=== PATIENT | female | born 1945 | race Caucasian/White ===

== ENCOUNTER 2023-09-14 08:30 | Inpatient (IN) | payer MEDICARE, OTHER ==
--- NOTE | 2023-09-14 09:24 | ED ---
General Adult HPI - General Chief complaint: Shortness of Breath Stated complaint: TORSTEN-covid Time Seen by Provider: 09/14/23 08:32 Source: patient, EMS, RN notes reviewed Mode of arrival: EMS Limitations: altered mental status - History of Present Illness Initial comments: Patient is an 78-year-old female presenting to the emergency department from shelter with concern for difficulty breathing. Patient diagnosed with COVID-19 infection 6 days ago. Patient admits to feeling short of breath. Patient denies history of similar symptoms previously. Patient denies pain. Patient feels fatigued. - Related Data Home Medications Medication Instructions Recorded Confirmed Acetaminophen [Tylenol] 650 mg PO Q4H PRN 09/14/23 09/14/23 Albuterol Nebulized [Ventolin 2.5 mg INHALATION RT-Q6H PRN 09/14/23 09/14/23 Nebulized] Albuterol Sulfate [Proair 2 puff INHALATION RT-Q4H PRN 09/14/23 09/14/23 Digihaler] Amoxicillin 500 mg PO TID@0700,1300,1900 09/14/23 09/14/23 Apixaban [Eliquis] 5 mg PO BID@0700,1600 09/14/23 09/14/23 Aspirin EC [Ecotrin Low Dose] 81 mg PO DAILY@0609/14/23 09/14/23 Benzonatate [Tessalon Perle] 200 mg PO TID@0700,1300,1900 09/14/23 09/14/23 Budesonide [Pulmicort] 0.5 mg INHALATION RT-BID@0700,1700 09/14/23 09/14/23 Cetirizine HCl [Zyrtec] 10 mg PO DAILY@0700 09/14/23 09/14/23 Cholecalciferol [Vitamin D3 (25 50 mcg PO DAILY@1600 09/14/23 09/14/23 Mcg = 1000 Iu)] Cough Drops Mouth/Throat Lozenge 1 lozenge PO Q8H PRN 09/14/23 09/14/23 5.4mg (Menthol) Doxycycline Hyclate 100 mg PO BID@0700,1600 09/14/23 09/14/23 Fenofibrate [Lofibra] 160 mg PO DAILY@0700 09/14/23 09/14/23 Levothyroxine Sodium [Synthroid] 50 mcg PO DAILY@0500 09/14/23 09/14/23 Lidocaine/Menthol [Icy Hot 4%-1% 1 patch TOPICAL DAILY@0609/14/23 09/14/23 Patch] Magnesium Hydroxide [Milk of 2,400 mg PO Q72H PRN 09/14/23 09/14/23 Magnesia] Metoprolol Tartrate [Lopressor] 12.5 mg PO BID@0700,1600 09/14/23 09/14/23 Molnupiravir [Molnupiravir (Eua)] 800 mg PO BID@0700,1600 09/14/23 09/14/23 Multivitamins, Thera [Multivitamin 1 tab PO DAILY@0709/14/23 09/14/23 (formulary)] Na Phos,M-B/Na Phos,Di-Ba [Fleet 133 ml RECTAL DAILY PRN 09/14/23 09/14/23 Adult] Oxybutynin Chloride [oxyBUTYnin 15 mg PO HS@199909/14/23 09/14/23 chloride ER] Pantoprazole [Protonix] 40 mg PO DAILY@69909/14/23 09/14/23 Potassium Chloride ER [K-Dur 10] 20 meq PO DAILY@0709/14/23 09/14/23 Sucralfate [Carafate] 1 gm PO QID@07,13,19,23 09/14/23 09/14/23 Umeclidinium [place] [Incruse 1 puff INHALATION RT-DAILY 09/14/23 09/14/23 Ellipta] bisacodyL [Dulcolax] 10 mg RECTAL DAILY PRN 09/14/23 09/14/23 predniSONE 5 mg PO DIRECTED 09/14/23 09/14/23 predniSONE [Deltasone] 40 mg PO DAILY@0709/14/23 09/14/23 Allergies Allergy/AdvReac Type Severity Reaction Status Date / Time cantaloupe Allergy Unknown Verified 09/14/23 10:14 ciprofloxacin [From Cipro] Allergy Unknown Verified 09/14/23 10:14 Iodinated Contrast Media Allergy Unknown Verified 09/14/23 10:14 mushroom Allergy Unknown Verified 09/14/23 10:14 naproxen Allergy Unknown Verified 09/14/23 10:14 NSAIDS (Non-Steroidal Allergy Unknown Verified 09/14/23 10:14 Anti-Inflamma Review of Systems ROS Statement: Those systems with pertinent positive or pertinent negative responses have been documented in the HPI. ROS Other: All systems not noted in ROS Statement are negative. Constitutional: Denies: fever Eyes: Denies: as per HPI ENT: Denies: ear pain Respiratory: Reports: as per HPI, cough, dyspnea Endocrine: Reports: fatigue Past Medical History Past Medical History: Atrial Fibrillation, COPD, Fibromyalgia, GERD/Reflux, GI Bleed, Hypertension, Renal Disease, Rheumatoid Arthritis (RA) Additional Past Medical History / Comment(s): UTI, Lymphedema, anemia, Covid19 Past Surgical History: Unable to Obtain General Exam Limitations: altered mental status General appearance: alert Head exam: Present: normocephalic Eye exam: Present: normal appearance Neck exam: Present: normal inspection. Absent: meningismus Respiratory exam: Present: rhonchi Cardiovascular Exam: Present: tachycardia GI/Abdominal exam: Present: soft. Absent: tenderness Extremities exam: Present: normal inspection Neurological exam: Present: alert, oriented X3. Absent: motor sensory deficit Psychiatric exam: Present: flat affect Skin exam: Present: normal color Course Vital Signs 09/14/23 09/14/23 09/14/23 08:31 08:36 09:00 Temperature 99 F Pulse Rate 101 H 96 Respiratory 52 H 32 H Rate Blood Pressure 108/74 108/74 O2 Sat by Pulse 93 L 93 L 95 Oximetry 09/14/23 09/14/23 09/14/23 09:30 10:00 10:30 Temperature Pulse Rate 94 99 99 Respiratory 35 H 34 H 35 H Rate Blood Pressure 124/60 125/55 127/61 O2 Sat by Pulse 94 L 94 L Oximetry 09/14/23 09/14/23 09/14/23 11:00 11:30 12:30 Temperature 97.7 F Pulse Rate 100 93 Respiratory 35 H 19 31 H Rate Blood Pressure 142/68 140/65 123/63 O2 Sat by Pulse 85 L 93 L Oximetry 09/14/23 09/14/23 09/14/23 12:45 13:00 13:52 Temperature 97.8 F 97.7 F Pulse Rate 96 91 86 Respiratory 35 H 32 H 34 H Rate Blood Pressure 123/95 132/65 133/72 O2 Sat by Pulse 93 L 96 96 Oximetry EKG Findings - EKG Results: EKG: interpreted by ERMD (Left axis. Artifact is present. Q wave V1. Nonspecific T waves), sinus rhythm Medical Decision Making - Medical Decision Making There is concern for sepsis diagnosed at 11:50 AM. Blood culture, lactic acid, and IV antibiotics have all been started. Fluids at 130. Was pt. sent in by a medical professional or institution (, PA, ANALYTICAL STRATEGIST, urgent care, hospital, or shelter...) When possible be specific @ -Nursing facility Did you speak to anyone other than the patient for history (EMS, parent, family, police, friend...)? What history was obtained from this source @ -No Did you review nursing and triage notes (agree or disagree)? Why? @ -I reviewed and agree with nursing and triage notes Were old charts reviewed (outside hosp., previous admission, EMS record, old EKG , old radiological studies, urgent care reports/EKG's, shelter records)? Report findings @ -No old charts were reviewed Differential Diagnosis (chest pain, altered mental status, abdominal pain women, abdominal pain men, vaginal bleeding, weakness, fever, dyspnea, syncope, headache, dizziness, GI bleed, back pain, seizure, CVA, palpatations, mental health, musculoskeletal)? @ -MDM differential distal differential Dyspnea: Coronary syndrome, arrhythmia, tamponade, asthma, COPD, pulmonary embolism, pneumonia, pneumothorax, pulmonary effusion, anaphylaxis, diabetic ketoacidosis, flailed chest, pulmonary contusion, diaphragmatic rupture, anemia, neuromuscular, this is not meant to be an all-inclusive list. EKG interpreted by me (3pts min.). @ -As above X-rays interpreted by me (1pt min.). @ -Chest x-ray shows right lower lobe CT interpreted by me (1pt min.). @ -None done U/S interpreted by me (1pt. min.). @ -None done What testing was considered but not performed or refused? (CT, X-rays, U/S, labs)? Why? @ -None What meds were considered but not given or refused? Why? @ -None Did you discuss the management of the patient with other professionals (professionals i.e. , IAN, ANALYTICAL STRATEGIST, lab, RT, psych nurse, outreach and education social worker, sifter and miller, teacher, botanical technical officer, general manager food)? Give summary @ -Case discussed with Dr. Barreto who will admit. Case also discussed with Dr. Guerrero who will consult. Case was again discussed with Dr. Barreto regarding de-escalation of care Was smoking cessation discussed for >3mins.? @ -No Was critical care preformed (if so, how long)? @ -No Were there social determinants of health that impacted care today? How? (Homelessness, low income, unemployed, alcoholism, drug addiction, transportation, low edu. Level, literacy, decrease access to med. care, alf, rehab)? @ -No Was there de-escalation of care discussed even if they declined (Discuss DNR or withdrawal of care, Hospice)? DNR status @ -Patient does not want further care. Patient does not want surgery nor surgical procedures even if life-threatening. Patient no longer wants blood. Patient no longer wants medical treatment. I did discuss this with the patient 3 times myself and she is alert and oriented and does demonstrate understanding. Patient is made aware that she may soon including even today. Nursing staff also discussed this with patient and came in with a similar understanding. Nursing staff also spoke with family who states that patient is able to make h er own decisions and does agree with her decision. What co-morbidities impacted this encounter? (DM, HTN, Smoking, COPD, CAD, Cancer, CVA, ARF, Chemo, Hep., AIDS, mental health diagnosis, sleep apnea, morbid obesity)? @ -None Was patient admitted / discharged? Hospital course, mention meds given and route, prescriptions, significant lab abnormalities, going to OR and other pertinent info. @ -Patient presents with multiple medical problems and serious to critical condition. Patient is refusing further care and only wants comfort care. Will be admitted for comfort Undiagnosed new problem with uncertain prognosis? @ -No Drug Therapy requiring intensive monitoring for toxicity (Heparin, Nitro, Insulin, Cardizem)? @ -No Were any procedures done? @ -No Diagnosis/symptom? @ -Retroperitoneal hemorrhage. Anemia. COVID-19. Sepsis. UTI. Acute kidney injury Acute, or Chronic, or Acute on Chronic? @ -Acute, acute, acute, acute, acute, acute Uncomplicated (without systemic symptoms) or Complicated (systemic symptoms)? @ -Default Side effects of treatment? @ -No Exacerbation, Progression, or Severe Exacerbation? @ -No Poses a threat to life or bodily function? How? (Chest pain, [place], [place], pneumonia, PE, COPD, DKA, ARF, appy, cholecystitis, CVA, Diverticulitis, Homicidal, Suicidal, threat to staff... and all critical care pts) @ -Threat to life with patient likely not to do well during this hospitalization - Lab Data Result diagrams: 09/14/23 09:33 09/14/23 09:33 Lab Results 09/14/23 09/14/23 09/14/23 Range/Units 09:33 09: 09:33 WBC 17.7 H (3.8-10.6) k/uL RBC 1.55 L (3.80-5.40) m/uL Hgb 4.5 L* (11.4-16.0) gm/dL Hct 14.9 L* (34.0-46.0) % MCV 96.2 (80.0-100.0) fL MCH 29.2 (25.0-35.0) pg MCHC 30.4 L (31.0-37.0) g/dL RDW 15.9 H (11.5-15.5) % Plt Count 304 (150-450) k/uL MPV 7.8 Neutrophils % (Manual) 89 % Band Neuts % (Manual) 1 % Lymphocytes % (Manual) 8 % Monocytes % (Manual) 4 % Neutrophils # (Manual) 15.90 H (1.3-7.7) k/uL Lymphocytes # (Manual) 1.42 (1.0-4.8) k/uL Monocytes # (Manual) 0.71 (0-1.0) k/uL Nucleated RBCs 1 H (0-0) /100 WBC Manual Slide Review Performed Polychromasia Present Hypochromasia Marked Poikilocytosis Slight Sodium 135 L (137-145) mmol/L Potassium 5.8 H (3.5-5.1) mmol/L Chloride 108 H (98-107) mmol/L Carbon Dioxide 19 L (22-30) mmol/L Anion Gap 8 mmol/L BUN 64 H (7-17) mg/dL Creatinine 2.86 H (0.52-1.04) mg/dL Est GFR (CKD-EPI)AfAm 17 (>60 ml/min/1.73 sqM) Est GFR (CKD-EPI)NonAf 15 (>60 ml/min/1.73 sqM) Glucose 98 (74-99) mg/dL Plasma Lactic Acid Og (0.7-2.0) mmol/L Calcium 8.9 (8.4-10.2) mg/dL Total Bilirubin 1.5 H (0.2-1.3) mg/dL AST 40 H (14-36) U/L ALT 19 (4-34) U/L Alkaline Phosphatase 78 (38-126) U/L Total Protein 5.8 L (6.3-8.2) g/dL Albumin 2.9 L (3.5-5.0) g/dL Urine Color Yellow Urine Appearance Turbid H (Clear) Urine pH 5.5 (5.0-8.0) Ur Specific [place] 1.018 (1.001-1.035) Urine Protein 1+ H (Negative) Urine Glucose (UA) Negative (Negative) Urine Ketones Negative (Negative) Urine Blood Moderate H (Negative) Urine Nitrite Negative (Negative) Urine Bilirubin Negative (Negative) Urine Urobilinogen <2.0 (<2.0) mg/dL Ur Leukocyte Esterase Large H (Negative) Urine RBC 20 H (0-5) /hpf Urine WBC >182 H (0-5) /hpf Urine WBC Clumps Many H (None) /hpf Ur Squamous Epith Cells 2 (0-4) /hpf Ur Yeast w Hyphae Few (None) /hpf Urine Yeast (Budding) Many H (None) /hpf Stool Occult Blood (Negative) Influenza Type A (PCR) (Not Detectd) Influenza Type B (PCR) (Not Detectd) RSV (PCR) (Not Detectd) SARS-CoV-2 (PCR) (Not Detectd) Blood Type Blood Type Confirm Blood Type Recheck Bld Type Recheck Status Antibody Screen Crossmatch Spec Expiration Date 09/14/23 09/14/23 09/14/23 Range/Units 09:33 09:33 10:00 WBC (3.8-10.6) k/uL RBC (3.80-5.40) m/uL Hgb (11.4-16.0) gm/dL Hct (34.0-46.0) % MCV (80.0-100.0) fL MCH (25.0-35.0) pg MCHC (31.0-37.0) g/dL RDW (11.5-15.5) % Plt Count (150-450) k/uL MPV Neutrophils % (Manual) % Band Neuts % (Manual) % Lymphocytes % (Manual) % Monocytes % (Manual) % Neutrophils # (Manual) (1.3-7.7) k/uL Lymphocytes # (Manual) (1.0-4.8) k/uL Monocytes # (Manual) (0-1.0) k/uL Nucleated RBCs (0-0) /100 WBC Manual Slide Review Polychromasia Hypochromasia Poikilocytosis Sodium (137-145) mmol/L Potassium (3.5-5.1) mmol/L Chloride (98-107) mmol/L Carbon Dioxide (22-30) mmol/L Anion Gap mmol/L BUN (7-17) mg/dL Creatinine (0.52-1.04) mg/dL Est GFR (CKD-EPI)AfAm (>60 ml/min/1.73 sqM) Est GFR (CKD-EPI)NonAf (>60 ml/min/1.73 sqM) Glucose (74-99) mg/dL Plasma Lactic Acid Og 1.0 (0.7-2.0) mmol/L Calcium (8.4-10.2) mg/dL Total Bilirubin (0.2-1.3) mg/dL AST (14-36) U/L ALT (4-34) U/L Alkaline Phosphatase (38-126) U/L Total Protein (6.3-8.2) g/dL Albumin (3.5-5.0) g/dL Urine Color Urine Appearance (Clear) Urine pH (5.0-8.0) Ur Specific [place] (1.001-1.035) Urine Protein (Negative) Urine Glucose (UA) (Negative) Urine Ketones (Negative) Urine Blood (Negative) Urine Nitrite (Negative) Urine Bilirubin (Negative) Urine Urobilinogen (<2.0) mg/dL Ur Leukocyte Esterase (Negative) Urine RBC (0-5) /hpf Urine WBC (0-5) /hpf Urine WBC Clumps (None) /hpf Ur Squamous Epith Cells (0-4) /hpf Ur Yeast w Hyphae (None) /hpf Urine Yeast (Budding) (None) /hpf Stool Occult Blood Positive H (Negative) Influenza Type A (PCR) Not Detected (Not Detectd) Influenza Type B (PCR) Not Detected (Not Detectd) RSV (PCR) Not Detected (Not Detectd) SARS-CoV-2 (PCR) Detected A (Not Detectd) Blood Type Blood Type Confirm Blood Type Recheck Bld Type Recheck Status Antibody Screen Crossmatch Spec Expiration Date 09/14/23 09/14/23 Range/Units 10:40 10:40 WBC (3.8-10.6) k/uL RBC (3.80-5.40) m/uL Hgb (11.4-16.0) gm/dL Hct (34.0-46.0) % MCV (80.0-100.0) fL MCH (25.0-35.0) pg MCHC (31.0-37.0) g/dL RDW (11.5-15.5) % Plt Count (150-450) k/uL MPV Neutrophils % (Manual) % Band Neuts % (Manual) % Lymphocytes % (Manual) % Monocytes % (Manual) % Neutrophils # (Manual) (1.3-7.7) k/uL Lymphocytes # (Manual) (1.0-4.8) k/uL Monocytes # (Manual) (0-1.0) k/uL Nucleated RBCs (0-0) /100 WBC Manual Slide Review Polychromasia Hypochromasia Poikilocytosis Sodium (137-145) mmol/L Potassium (3.5-5.1) mmol/L Chloride (98-107) mmol/L Carbon Dioxide (22-30) mmol/L Anion Gap mmol/L BUN (7-17) mg/dL Creatinine (0.52-1.04) mg/dL Est GFR (CKD-EPI)AfAm (>60 ml/min/1.73 sqM) Est GFR (CKD-EPI)NonAf (>60 ml/min/1.73 sqM) Glucose (74-99) mg/dL Plasma Lactic Acid Og (0.7-2.0) mmol/L Calcium (8.4-10.2) mg/dL Total Bilirubin (0.2-1.3) mg/dL AST (14-36) U/L ALT (4-34) U/L Alkaline Phosphatase (38-126) U/L Total Protein (6.3-8.2) g/dL Albumin (3.5-5.0) g/dL Urine Color Urine Appearance (Clear) Urine pH (5.0-8.0) Ur Specific [place] (1.001-1.035) Urine Protein (Negative) Urine Glucose (UA) (Negative) Urine Ketones (Negative) Urine Blood (Negative) Urine Nitrite (Negative) Urine Bilirubin (Negative) Urine Urobilinogen (<2.0) mg/dL Ur Leukocyte Esterase (Negative) Urine RBC (0-5) /hpf Urine WBC (0-5) /hpf Urine WBC Clumps (None) /hpf Ur Squamous Epith Cells (0-4) /hpf Ur Yeast w Hyphae (None) /hpf Urine Yeast (Budding) (None) /hpf Stool Occult Blood (Negative) Influenza Type A (PCR) (Not Detectd) Influenza Type B (PCR) (Not Detectd) RSV (PCR) (Not Detectd) SARS-CoV-2 (PCR) (Not Detectd) Blood Type O Positive Blood Type Confirm O Positive Blood Type Recheck No Previous Record Bld Type Recheck Status CABO Indicated Antibody Screen NEGATIVE Crossmatch See Detail Spec Expiration Date 09/17/20232339 Disposition Clinical Impression: COVID-19, Urinary tract infection, Sepsis, Retroperitoneal hemorrhage Disposition: ADMITTED IP TO THIS HOSP Condition: Critical Is patient prescribed a controlled substance at d/c from ED?: No Referrals: Milana Orr DO [Primary Care Provider] - 1-2 days Time of Disposition: 14:16
[2023-09-14] MEDS: ACETAMINOPHEN IV (For NPO) 1,000 MG in EMPTY BAG 1 BAG IVPB STA (09:46)
[2023-09-14 09:56] LABS: Hypochromasia Marked; MCH 29.2 pg (25.0-35.0); MCHC 30.4 g/dL (31.0-37.0); MCV 96.2 fL (80.0-100.0); Mean Platelet Volume 7.8; Platelet Count 304 k/uL (150-450); Poikilocytosis Slight; RBC 1.55 m/uL (3.80-5.40); RDW 15.9 % (11.5-15.5)
--- NOTE | 2023-09-14 09:59 | XR ---
EXAMINATION TYPE: XR chest 1V portable DATE OF EXAM: 09/14/2023 HISTORY: Shortness of breath. COMPARISON: None. TECHNIQUE: Single view of the chest is submitted. FINDINGS: Demonstrated are scattered senescent parenchymal change. Patchy infiltrate right medial lung base. Correlate for pneumonia. The heart is stable. Hilar and mediastinal structures are within normal limits. Degenerative changes are seen of the dorsal spine. IMPRESSION: 1. Patchy infiltrate right medial lung base. Correlate for pneumonia.
[2023-09-14 10:01] LABS: HGB 4.5 gm/dL (11.4-16.0)
[2023-09-14 10:02] LABS: HCT 14.9 % (34.0-46.0)
[2023-09-14 10:05] LABS: ALT 19 U/L (4-34); AST 40 U/L (14-36); African American GFR (CKD) 17 (>60 ml/min/1.73 sqM); Albumin 2.9 g/dL (3.5-5.0); Alkaline Phosphatase 78 U/L (38-126); Anion Gap 8 mmol/L; Blood Urea Nitrogen 64 mg/dL (7-17); Calcium 8.9 mg/dL (8.4-10.2); Carbon Dioxide 19 mmol/L (22-30); Chloride 108 mmol/L (98-107); Glucose 98 mg/dL (74-99); Non-African American GFR(CKD) 15 (>60 ml/min/1.73 sqM); Potassium 5.8 mmol/L (3.5-5.1); Sodium 135 mmol/L (137-145); Total Bilirubin 1.5 mg/dL (0.2-1.3); Total Protein 5.8 g/dL (6.3-8.2)
[2023-09-14 10:18] LABS: Band Neutrophils % 1 %; Lymphocytes # (M) 1.42 k/uL (1.0-4.8); Monocytes # (M) 0.71 k/uL (0-1.0); Neutrophils % (M) 89 %; Nucleated Red Blood Cells 1 /100 WBC (0-0); Total Cells Counted 200; WBC 17.7 k/uL (3.8-10.6)
[2023-09-14 10:19] LABS: Polychromasia Present
[2023-09-14] MEDS: SODIUM CHLORIDE 0.9% 1,000 ML IV SCH (10:24)
[2023-09-14 10:34] LABS: Appearance,Urine Turbid (Clear); Bilirubin,Urine Negative (Negative); Blood,Urine Moderate (Negative); Budding Yeast,Urine Many /hpf; Color,Urine Yellow; Glucose,Urine (UA) Negative (Negative); Hyphae Yeast, Urine Few /hpf; Ketones,Urine Negative (Negative); Leukocyte Esterase,Urine Large (Negative); Nitrite,Urine Negative (Negative); PH, Urine 5.5 (5.0-8.0); Protein,Urine 1+ (Negative); RBC,Urine 20 /hpf (0-5); Specific Gravity,Urine 1.018 (1.001-1.035); Squamous Epithelial Cell,Urine 2 /hpf (0-4); Urobilinogen,Urine <2.0 mg/dL (<2.0); WBC,Urine >182 /hpf (0-5)
--- NOTE | 2023-09-14 12:28 | CT ---
EXAMINATION TYPE: CT abdomen pelvis wo con DATE OF EXAM: 09/14/2023 HISTORY: COVID/UTI/LOW HEMOGLOBIN CT DLP: 995.6 mGycm. Automated Exposure Control for Dose Reduction was Utilized. TECHNIQUE: CT scan of the abdomen and pelvis is performed without oral or IV contrast. COMPARISON: NONE FINDINGS: Within the limitations of a non-contrast study, the following observations are made. LUNG BASES: Small right pleural effusion. And dependent opacity bilaterally favors atelectasis. Coron terry artery calcification is noted. LIVER/GB: Nonspecific 2.6 cm hypodense lesion in the hepatic dome image 10 favors benign thin-walled cyst. Internal gallstones in gallbladder. PANCREAS: No significant abnormality is seen. SPLEEN: No significant abnormality is seen. ADRENALS: No significant abnormality is seen. KIDNEYS: Cortical thinning in both kidneys with simple appearing thin-walled cysts bilaterally. There is hyperdense fluid or acute blood surrounding the right kidney greatest along the lateral and infer ior aspect. This measures at least 8.4 x 5.7 cm axial image 38. No hydronephrosis seen bilaterally. F oley catheter decompresses bladder. BOWEL: No significant abnormality is seen. GENITAL ORGANS: Uterus is surgically absent. LYMPH NODES: No greater than 1cm abdominal or pelvic lymph nodes are appreciated. OSSEOUS STRUCTURES: Multilevel vacuum disc phenomenon and disc space narrowing in the thoracolumbar s pine. Multilevel spurring. Moderate to severe narrowing of both hip joints. Motion artifact near this level is noted. OTHER: Moderate calcified plaque of aorta extends into branch vessels.. IMPRESSION: At least fairly moderate size right retroperitoneal acute bleed as detailed above most pr ominent along the inferior margin of the right kidney. Consider direct catheter angiogram to further evaluate for source of active hemorrhage which then could be treated with endovascular procedure if f elt likely warranted.
[2023-09-14 13:12] VITALS: TEMP 97.7
[2023-09-14] MEDS ORDERED: ONDANSETRON 4 MG/2 ML VIAL IVP PRN (14:17)
[2023-09-14] MEDS ORDERED: ACETAMINOPHEN TAB 325 MG TAB PO PRN (14:17)
[2023-09-14] MEDS ORDERED: ALBUTEROL NEBULIZED 2.5 MG/3 ML INHALATION PRN ×2 (14:19→15:19)
[2023-09-14] MEDS: SODIUM CHLORIDE 0.9% 1,000 ML IV STA (14:57)
[2023-09-14] MEDS: LORazepam 2 MG/ML INJ IV PRN (19:10)
[2023-09-14] MEDS: MORPHINE SULFATE (100 MG/2 ML) 100 MG in SODIUM CHLORIDE 0.9% 100 ML IV SCH (20:13)
[2023-09-14] MEDS ORDERED: ALBUTEROL HFA INHALER INHALATION PRN (20:27)
--- NOTE | 2023-09-14 21:39 | P.HPIM ---
History of Present Illness H&P Date: 09/14/23 Chief Complaint: Shortness of breath Patient is a 78-year-old female with a known history of hypertension, COPD on home oxygen, fibromyalgia, rheumatoid arthritis, lymphedema, paroxysmal atrial fibrillation on anticoagulation with Eliquis and other multiple medical problems. Patient is also morbidly obese with a BMI 51.5. Patient was sent from [facility] due to worsening shortness of breath and hypoxia. Patient has been sick for the past 6 days and was diagnosed with CO VID-19 infection. She was also having low-grade fever. Pulse ox was 86% on 4 L oxygen via nasal cannula. Patient was recently treated for urinary tract infection, tract infection, diarrhea and C. difficile infection and also has history of bleeding ulcer. Unable to provide complete history from the patient. On admission chest x-ray showed patchy infiltrate right medial lung base correlate for pneumonia. EKG showed low QRS voltage in precordial leads. Sinus rhythm. Laboratory data showed WBC 17.7 hemoglobin 4.5 and platelets 304 RDW 15.9 Sodium 135 potassium 5.8, BUN 64 and creatinine 2.86 and calcium 8.9 total bili 1.5 AST 40 alk phos 78 albumin 2.2.9 and urinalysis showed turbid with 1+ protein moderate blood large leukocyte esterase with elevated RBCs and WBCs. FOBT positive COVID-[address] of the abdomen pelvis showed fairly moderate-sized right retroperitoneal acute bleed most prominent along the inferior margin of the right kidney. Consider direct catheter angiogram to further evaluate for source of acute hemorrhage which then could be treated with endovascular procedure. Review of Systems Complete review of systems could not be assessed except as per HPI. ROS unobtainable: due to mental status Past Medical History Past Medical History: Atrial Fibrillation, COPD, Fibromyalgia, GERD/Reflux, GI Bleed, Hypertension, Renal Disease, Rheumatoid Arthritis (RA) Additional Past Medical History / Comment(s): UTI, Lymphedema, anemia, Covid19 Past Surgical History: Unable to Obtain Medications and Allergies Home Medications Medication Instructions Recorded Confirmed Type Acetaminophen [Tylenol] 650 mg PO Q4H PRN 09/14/23 09/14/23 History Albuterol Nebulized [Ventolin 2.5 mg INHALATION RT-Q6H PRN 09/14/23 09/14/23 History Nebulized] Albuterol Sulfate [Proair 2 puff INHALATION RT-Q4H PRN 09/14/23 09/14/23 History Digihaler] Amoxicillin 500 mg PO TID@0700,1300,1900 09/14/23 09/14/23 History Apixaban [Eliquis] 5 mg PO BID@0700,159909/14/23 09/14/23 History Aspirin EC [Ecotrin Low Dose] 81 mg PO DAILY@59909/14/23 09/14/23 History Benzonatate [Tessalon Perle] 200 mg PO TID@0700,1300,19009/14/23 09/14/23 History Budesonide [Pulmicort] 0.5 mg INHALATION RT-BID@0700,1700 09/14/23 09/14/23 History Cetirizine HCl [Zyrtec] 10 mg PO DAILY@69909/14/23 09/14/23 History Cholecalciferol [Vitamin D3 (25 50 mcg PO DAILY@159909/14/23 09/14/23 History Mcg = 1000 Iu)] Cough Drops Mouth/Throat Lozenge 1 lozenge PO Q8H PRN 09/14/23 09/14/23 History 5.4mg (Menthol) Doxycycline Hyclate 100 mg PO BID@0700,159909/14/23 09/14/23 History Fenofibrate [Lofibra] 160 mg PO DAILY@69909/14/23 09/14/23 History Levothyroxine Sodium [Synthroid] 50 mcg PO DAILY@05009/14/23 09/14/23 History Lidocaine/Menthol [Icy Hot 4%-1% 1 patch TOPICAL DAILY@59909/14/23 09/14/23 History Patch] Magnesium Hydroxide [Milk of 2,400 mg PO Q72H PRN 09/14/23 09/14/23 History Magnesia] Metoprolol Tartrate [Lopressor] 12.5 mg PO BID@0700,159909/14/23 09/14/23 History Molnupiravir [Molnupiravir (Eua)] 800 mg PO BID@0700,1600 09/14/23 09/14/23 History Multivitamins, Thera [Multivitamin 1 tab PO DAILY@0709/14/23 09/14/23 History (formulary)] Na Phos,M-B/Na Phos,Di-Ba [Fleet 133 ml RECTAL DAILY PRN 09/14/23 09/14/23 History Adult] Oxybutynin Chloride [oxyBUTYnin 15 mg PO HS@199909/14/23 09/14/23 History chloride ER] Pantoprazole [Protonix] 40 mg PO DAILY@0709/14/23 09/14/23 History Potassium Chloride ER [K-Dur 10] 20 meq PO DAILY@0709/14/23 09/14/23 History Sucralfate [Carafate] 1 gm PO QID@07,13,,09/14/23 09/14/23 History Umeclidinium [place] [Incruse 1 puff INHALATION RT-DAILY 09/14/23 09/14/23 History Ellipta] bisacodyL [Dulcolax] 10 mg RECTAL DAILY PRN 09/14/23 09/14/23 History predniSONE 5 mg PO DIRECTED 09/14/23 09/14/23 History predniSONE [Deltasone] 40 mg PO DAILY@0709/14/23 09/14/23 History Allergies Allergy/AdvReac Type Severity Reaction Status Date / Time cantaloupe Allergy Unknown Verified 09/14/23 10:14 ciprofloxacin [From Cipro] Allergy Unknown Verified 09/14/23 10:14 Iodinated Contrast Media Allergy Unknown Verified 09/14/23 10:14 mushroom Allergy Unknown Verified 09/14/23 10:14 naproxen Allergy Unknown Verified 09/14/23 10:14 NSAIDS (Non-Steroidal Allergy Unknown Verified 09/14/23 10:14 Anti-Inflamma Physical Exam Vitals: Vital Signs Temp Pulse Resp BP Pulse Ox 09/14/23 13:52 86 34 H 133/72 96 09/14/23 13:00 97.7 F 91 32 H 132/65 96 09/14/23 12:45 97.8 F 96 35 H 123/95 93 L 09/14/23 12:30 97.7 F 93 31 H 123/63 93 L 09/14/23 11:30 19 140/65 09/14/23 11:00 100 35 H 142/68 85 L 09/14/23 10:30 99 35 H 127/61 94 L 09/14/23 10:00 99 34 H 125/55 94 L 09/14/23 09:30 94 35 H 124/60 09/14/23 09:00 96 32 H 108/74 95 09/14/23 08:36 93 L 09/14/23 08:31 99 F 101 H 52 H 108/74 93 L Intake and Output 09/14/23 09/14/23 09/14/23 06:59 14:59 22:59 Intake Total 0 Balance 0 Intake: Blood Product 0 Rc As-1 Unit 0 [id number] Other: Weight 136.078 kg PHYSICAL EXAMINATION: Patient is lying in the bed, no acute distress, awake alert and oriented but c onfused... HEENT: Normocephalic. Neck is supple. Pupils reactive. Nostrils clear. Oral cavity is moist. Neck reveals no JVD, carotid bruits, or thyromegaly. CHEST EXAMINATION: Trachea is central. Symmetrical expansion. Bibasilar diminished sounds. No wheezing or rhonchi.. CARDIAC: Normal S1, S2 with no gallops. No murmurs ABDOMEN: Soft. Bowel sounds normal. No organomegaly. No abdominal bruits. Extremities: Bilateral lower extremity lymphedema.. No clubbing or cyanosis Neurologically awake, alert, oriented x 1-2. Able to move all extremities.. No focal deficits noted Skin: No rash or skin lesions. Psychiatric: Coperative. Could not be assessed completely Musculoskeletal: No joint swelling or deformity. Results CBC & Chem 7: 09/14/23 09:33 09/14/23 09:33 Labs: Abnormal Lab Results - Last 24 Hours (Table) 09/14/23 09/14/23 09/14/23 Range/Units 09:33 09:33 09:33 WBC 17.7 H (3.8-10.6) k/uL RBC 1.55 L (3.80-5.40) m/uL Hgb 4.5 L* (11.4-16.0) gm/dL Hct 14.9 L* (34.0-46.0) % MCHC 30.4 L (31.0-37.0) g/dL RDW 15.9 H (11.5-15.5) % Neutrophils # (Manual) 15.90 H (1.3-7.7) k/uL Nucleated RBCs 1 H (0-0) /100 WBC Sodium 135 L (137-145) mmol/L Potassium 5.8 H (3.5-5.1) mmol/L Chloride 108 H (98-107) mmol/L Carbon Dioxide 19 L (22-30) mmol/L BUN 64 H (7-17) mg/dL Creatinine 2.86 H (0.52-1.04) mg/dL Total Bilirubin 1.5 H (0.2-1.3) mg/dL AST 40 H (14-36) U/L Total Protein 5.8 L (6.3-8.2) g/dL Albumin 2.9 L (3.5-5.0) g/dL Urine Appearance Turbid H (Clear) Urine Protein 1+ H (Negative) Urine Blood Moderate H (Negative) Ur Leukocyte Esterase Large H (Negative) Urine RBC 20 H (0-5) /hpf Urine WBC >182 H (0-5) /hpf Urine WBC Clumps Many H (None) /hpf Urine Yeast (Budding) Many H (None) /hpf Stool Occult Blood (Negative) SARS-CoV-2 (PCR) (Not Detectd) Crossmatch 09/14/23 09/14/23 09/14/23 Range/Units 09:33 10:00 10:40 WBC (3.8-10.6) k/uL RBC (3.80-5.40) m/uL Hgb (11.4-16.0) gm/dL Hct (34.0-46.0) % MCHC (31.0-37.0) g/dL RDW (11.5-15.5) % Neutrophils # (Manual) (1.3-7.7) k/uL Nucleated RBCs (0-0) /100 WBC Sodium (137-145) mmol/L Potassium (3.5-5.1) mmol/L Chloride (98-107) mmol/L Carbon Dioxide (22-30) mmol/L BUN (7-17) mg/dL Creatinine (0.52-1.04) mg/dL Total Bilirubin (0.2-1.3) mg/dL AST (14-36) U/L Total Protein (6.3-8.2) g/dL Albumin (3.5-5.0) g/dL Urine Appearance (Clear) Urine Protein (Negative) Urine Blood (Negative) Ur Leukocyte Esterase (Negative) Urine RBC (0-5) /hpf Urine WBC (0-5) /hpf Urine WBC Clumps (None) /hpf Urine Yeast (Budding) (None) /hpf Stool Occult Blood Positive H (Negative) SARS-CoV-2 (PCR) Detected A (Not Detectd) Crossmatch See Detail Thrombosis Risk Factor Assmnt - DVT/VTE Prophylaxis DVT/VTE Prophylaxis: Pharmacologic Prophylaxis ordered Assessment and Plan Assessment: Acute on chronic hypoxic respiratory failure due to COVID-19 infection Acute blood loss anemia due to GI bleed/retroperitoneal hemorrhage with h emoglobin 4.5 on admission. FOBT positive. Acute urinary tract infection Right medial base possible bacterial pneumonia. Hypovolemic hyponatremia Acute kidney injury likely vasomotor nephropathy with possible ATN with creatinine 2.86 on admission Hyperkalemia due to acute kidney injury History of bleeding ulcer COPD on home oxygen Paroxysmal atrial fibrillation on anticoagulation with Eliquis Fibromyalgia Hypertension Lymphedema DVT prophylaxis SCDs Plan: Patient will be continued on IV hydration with normal saline. Current oxygen supplementation. Patient was started on prednisone 40 mg p.o. daily. Follow-up renal function. Started on antibiotics ceftriaxone and follow-up urine culture report. CT of the abdomen pelvis showed retroperitoneal bleed. General surgery was consulted for evaluation but patient does not want any surgical procedure at this time. Patient has caregiver. Due to poor prognosis and patient does not wish to proceed any procedures, discussed with the family and caregiver who is agreeable with transfer to hospice care. Follow-up closely. Time with Patient: Greater than 30
[2023-09-14] MEDS: HALOPERIDOL LACTATE 5 MG/ML 1 ML VIAL IVP PRN (23:11)
[2023-09-15] MEDS: OXYBUTYNIN 15 MG TAB.ER.24 PO SCH (00:36)
[2023-09-15] MEDS ORDERED: LIDOCAINE 4% PATCH TOPICAL SCH (06:00)
[2023-09-15] MEDS ORDERED: predniSONE 20 MG TAB PO SCH (07:00)
[2023-09-15] MEDS ORDERED: PANTOPRAZOLE 40 MG TABLET PO SCH (07:00)
[2023-09-15 07:45] VITALS: BP 132/57; PULSE 96; RESP 22
--- NOTE | 2023-09-21 09:19 | CDI ---
Documentation Clarification Form Date: 09/21/2023 From: Nivia Franklin Phone: [phone] Admit Date: 09/14/2023 03:16:00 PM Patient Name: Deyanira Cardenas Visit Number: [id number] Discharge Date: 09/15/2023 10:00:00 AM ATTENTION: The Clinical Documentation Specialists (CDI) and [facility] Coding Staff appreciate your assistance in clarifying documentation. Please respond to the clarification below the line at the bottom and electronically sign. The CDI & [facility] Coding staff will review the response and follow-up if needed. Please note: Queries are made part of the Legal Health Record. If you have any questions, please contact the author of this message via ITS. Dr. Landon Barreto: Sepsis is documented in the ED note 09/13 but is not noted in subsequent documentation. Clarification is requested. History/Risk Factors: 78 year old female with a history of AFib, COPD, HTN, renal disease and GI bleed who presents with difficulty breathing- diagnosed with COVID-19 infection 6 days prior Clinical Indicators: 09/13 Triage VS: 108/74, 99.0, 101, 52, 93% 3 liters nasal cannula 09/13 ED note, Clinical Impression: "COVID-19, urinary tract infection, Sepsis, Retroperitoneal hemorrhage" 09/13 H&P, Assessment and Plan: Acute urinary tract infection, Right medial base possible bacterial pneumonia." 09/13 WBC: 17.7 Lactic Acid: 1.0 SARS-CoV-2(PCR): Detected 09/13 Urinalysis: Appearance: Turbid, Protein: 1+, Blood: Moderate, Leukocyte Esterase: Large, RBC: 20, WBC :>182, Yeast: Many 09/13 Chest X Ray, Impression: "1. Patchy infiltrate right medial lung base. Correlate for pneumonia." Treatment: Normal Saline IV 130cc/hour 09/13 Rocephin 2gram IV once 09/13 Please clarify if Sepsis is: [ x ] Sepsis, POA, confirmed, remains under treatment [ ] Sepsis confirmed, resolved [ ] Sepsis ruled out [ ] Other condition, please specify [ ] Unable to determine SIRS Criteria: 2 or more of the following may indicate SIRS Temperature < 96.8F (36C) or > 101.0F (38.3C) Heart Rate > 90 bpm Respiratory Rate > 20 breaths/min or PaCO2 < 32 mmHg White Blood Cell Count > 12,000 or < 4,000 cells/mm3 or > 10% bands MTDD
--- NOTE | 2023-09-21 09:27 | CDI ---
Documentation Clarification Form Date: 09/21/2023 From: Nivia Franklin Phone: [phone] Admit Date: 09/14/2023 03:16:00 PM Patient Name: Deyanira Cardenas Visit Number: [id number] Discharge Date: 09/15/2023 10:00:00 AM ATTENTION: The Clinical Documentation Specialists (CDI) and [facility] Coding Staff appreciate your assistance in clarifying documentation. Please respond to the clarification below the line at the bottom and electronically sign. The CDI & [facility] Coding staff will review the response and follow-up if needed. Please note: Queries are made part of the Legal Health Record. If you have any questions, please contact the author of this message via ITS. Dr. Landon Barreto: There is documentation of possible bacterial pneumonia in the H&P 09/13. Additional clarification is requested. History/Risk Factors: 78-year-old female with a history of AFib, COPD, HTN, renal disease and GI bleed who presents with difficulty breathing- diagnosed with COVID-19 infection 6 days prior Clinical Indicators: 09/13 Triage VS: 108/74, 99.0, 101, 52, 93% 3 liters nasal cannula 09/13 ED note, Clinical Impression: "COVID-19, urinary tract infection, Sepsis, Retroperitoneal hemorrhage" 09/13 H&P, Assessment and Plan: Acute urinary tract infection, Right medial base possible bacterial pneumonia." 09/13 WBC: 17.7 Lactic Acid: 1.0 SARS-CoV-2(PCR): Detected 09/13 Chest X Ray, Impression: "1. Patchy infiltrate right medial lung base. Correlate for pneumonia." Treatment: Normal Saline IV 130cc/hour 09/13 Rocephin 2gram IV once 09/13 Can you please clarify the diagnosis of bacterial pneumonia? [ x ] Bacterial pneumonia ruled in [ ] Bacterial pneumonia ruled out [ ] Other, please specify [ ] Unable to determine MTDD
== END 2023-09-15 10:00 | disposition hospice, inpatient (51) | DRG 871 ==
LOC: EC 08:30 → 3SCARD 15:16
PROVIDERS: ADMIT Internal Medicine; ATTEND Internal Medicine
DX: A41.9 Sepsis, unspecified organism (principal); J15.9 Unspecified bacterial pneumonia; J96.21 Acute and chronic respiratory failure with hypoxia; U07.1 COVID-19; N17.0 Acute kidney failure with tubular necrosis; K68.3 Retroperitoneal hematoma; K86.3 Pseudocyst of pancreas; D62 Acute posthemorrhagic anemia; E87.1 Hypo-osmolality and hyponatremia; K92.2 Gastrointestinal hemorrhage, unspecified; N39.0 Urinary tract infection, site not specified; Z68.43 Body mass index [BMI] 50.0-59.9, adult; E66.01 Morbid (severe) obesity due to excess calories; E86.1 Hypovolemia; E87.5 Hyperkalemia; I48.0 Paroxysmal atrial fibrillation; Z79.01 Long term (current) use of anticoagulants; I10 Essential (primary) hypertension; I89.0 Lymphedema, not elsewhere classified; M06.9 Rheumatoid arthritis, unspecified; M79.7 Fibromyalgia; Z79.82 Long term (current) use of aspirin; Z79.890 Hormone replacement therapy; Z79.899 Other long term (current) drug therapy; Z87.440 Personal history of urinary (tract) infections; Z99.81 Dependence on supplemental oxygen; Z88.1 Allergy status to other antibiotic agents; Z91.041 Radiographic dye allergy status; Z91.018 Allergy to other foods; Z88.6 Allergy status to analgesic agent; Z88.5 Allergy status to narcotic agent
CPT/HCPCS: 36415; 36430; 71045; 74176; 80053; 81001; 82272; 83605; 85025; 86850; 86900; 86901; 86920; 87040; 87086; 87636; 93005; 94760; 96361; 96365; 96366; 96367; 96375; 99285

== ENCOUNTER 2023-09-14 15:56 | Inpatient (IN) | payer MEDICAID, MEDICARE ==
[2023-09-15] MEDS ORDERED: ONDANSETRON 4 MG/2 ML VIAL IVP PRN (09:58)
[2023-09-15] MEDS ORDERED: ACETAMINOPHEN SUPPOSITORY 650 MG SUPP RECTAL PRN (09:58)
[2023-09-15] MEDS ORDERED: MORPHINE SULFATE 4 MG/ML SYRINGE IV PRN (09:58)
[2023-09-15] MEDS ORDERED: ATROPINE OPHTH SOLN 1% 5ML BTL SUBLINGUAL PRN (09:58)
[2023-09-15] MEDS: LORazepam 2 MG/ML INJ IV PRN (10:25)
[2023-09-15] MEDS: MORPHINE SULFATE (100 MG/2 ML) 100 MG in SODIUM CHLORIDE 0.9% 100 ML IV SCH (10:25)
[2023-09-15] MEDS: SCOPOLAMINE 1 MG/72 HR PATCH TRANSDERM SCH (10:33)
[2023-09-15] MEDS: DRY MOUTH SPRAY 44.3 SPRAY/44.3 ML SPRAY MUCOUS MEM PRN (11:35)
[2023-09-15] MEDS: ARTIFICIAL TEARS-HYPROMELLOSE DROPS 15 ML BTL BOTH EYES PRN (14:22)
[2023-09-15 16:29] VITALS: RESP 16
== END 2023-09-15 19:52 | disposition expired | DRG 951 ==
LOC: EC 15:56 → 5NMEDONC 09-15 10:01 → 4SSUR 09-15 11:11
PROVIDERS: ADMIT Internal Medicine; ATTEND Internal Medicine
DX: Z51.5 Encounter for palliative care (principal); J96.21 Acute and chronic respiratory failure with hypoxia; J15.9 Unspecified bacterial pneumonia; D62 Acute posthemorrhagic anemia; N39.0 Urinary tract infection, site not specified; Z99.81 Dependence on supplemental oxygen; I48.0 Paroxysmal atrial fibrillation; Z66 Do not resuscitate; I10 Essential (primary) hypertension; M79.7 Fibromyalgia; I89.0 Lymphedema, not elsewhere classified; Z79.01 Long term (current) use of anticoagulants; Z79.82 Long term (current) use of aspirin; Z79.51 Long term (current) use of inhaled steroids; Z79.890 Hormone replacement therapy; Z79.899 Other long term (current) drug therapy; Z88.1 Allergy status to other antibiotic agents; Z91.041 Radiographic dye allergy status